=== PATIENT | male | born 1950 | race Caucasian/White ===

== ENCOUNTER → 2017-07-10 | Outpatient (CLI) | DX: R07.9 Chest pain, unspecified (principal); I45.10 Unspecified right bundle-branch block ==

== ENCOUNTER 2017-08-06 03:15 | Emergency (ER) | payer MEDICARE, OTHER ==
[2017-08-06] VITALS (7 sets, daily range): BP systolic 116–185; BP diastolic 74–103; PULSE 71–97; RESP 15–20; TEMP 97.6–97.7; O2SAT 95–98
[~2017-08-06 03:15] MED LIST: ALBU1AER INH; ALLO300 PO; BACT800T5 PO; FENO1TAB76 PO; LEVO50TA4 PO; METHO500 PO; METO50TA PO; Meclizine Hcl PO; NEXI40CA PO; OMEG1CAP53 PO; SIMV10TA PO; XANA1TAB6 PO; Z.0.WALKERFRONT; ZETI10TA5 PO
[2017-08-06] MEDS ORDERED: NEXI40CA PO (03:55)
[2017-08-06] MEDS ORDERED: XANA1TAB2 PO (03:55)
[2017-08-06] MEDS ORDERED: ALBUAER3 INH (03:55)
[2017-08-06] MEDS ORDERED: cloNIDine HCL 0.2 MG TAB PO ONE (04:15)
--- NOTE | 2017-08-06 04:21 | PD ---
HPI Chief Complaint: Psychiatric Symptoms Time Seen by Provider: 03:55 Travel History International Travel<30 days: No Contact w/Intl Traveler<30days: No Traveled to known affect area: No History of Present Illness HPI 67-year-old white male presents emergency department on a voluntary basis for psychological evaluation. The patient states that he has lost several people this past month. He states that a good friend of his just 3 days ago from cancer. He has been feeling melancholy and drinking large quantities of alcohol. Patient states that he suffers from hypertension and anxiety. He has not been taking his medication. He states that he has contemplated suicide but has no plan. No homicidal ideation. Exacerbated by recent friends passing. No alleviating factors. Patient goes on to state that he has had chronic abdominal pain for the last few months. He is been seen multiple times by his primary care doctor as well as getting a CAT scan of his abdomen. They have not determine the etiology. PFSH Past Medical History Arthritis: Yes Blood Disorders: No Bipolar Disorder: Yes Anxiety: Yes Depression: Yes Heart Rhythm Problems: No Cancer: No Cardiovascular Problems: Yes High Cholesterol: Yes Cerebrovascular Accident: Yes Diminished Hearing: Yes (BILATERAL) Endocrine: No Gastrointestinal Disorders: No GERD: Yes Gout: Yes Genitourinary: No Hypertension: Yes Immune Disorder: No Inguinal Hernia: Yes Musculoskeletal: Yes (CHRONIC BACK PAIN,PT STS HERNIATED LUMBAR DISCS) Neurologic: Yes Psychiatric: Yes Reproductive: No Respiratory: Yes Immunizations Current: No Pancreatitis: Yes Seizures: Yes (X1 DUE TO ETOH WITHDRAWAL) Thyroid Disease: Yes (HYPOTHYROID) Triglycerides - High: Yes Ulcer: Yes Tetanus Vaccination: < 5 Years PNEUMOCCOCAL Vaccine (Year): 2 Past Surgical History Abdominal Surgery: Yes (HERNIA REPAIR-RIGHT INGUINAL) Oral Surgery: Yes (ORIF JAW) Pacemaker: No Other Surgery: Yes Social History Alcohol Use: Yes (BEERS HX: ALCOHOL ABUSE ) Tobacco Use: No (QUIT LONG TIME AGO ) Substance Use: No (History of opiate abuse) Allergies-Medications (Allergen,Severity, Reaction): Uncoded Allergies: CHOLESTEROL MED (Allergy, Severe, RASH, 12/07/09) Reported Meds & Prescriptions Reported Meds & Active Scripts Active Reported Nexium (Esomeprazole DR) 40 Mg Capdr 40 Mg PO DAILY Xanax (Alprazolam) 1 Mg Tab 1 Mg PO BID Proair Hfa 8.5 GM Inh (Albuterol Sulfate) 90 Mcg/Act Aer 2 Puff INH Q4-6H PRN 108 mcg/actuation Review of Systems General / Constitutional: No: Fever Eyes: No: Visual changes HENT: No: Headaches Cardiovascular: No: Chest Pain or Discomfort Respiratory: No: Shortness of Breath Gastrointestinal: Positive: Abdominal Pain Genitourinary: No: Dysuria Musculoskeletal: Positive: Arthralgias, No: Pain Skin: No Rash Neurologic: No: Weakness Psychiatric: Positive: Depression, Suicidal Ideations, Mood Disorder, No: Anxiety, Disorder of Thought, Substance Abuse, Homicidal Ideation Endocrine: No: Polydipsia Hematologic/Lymphatic: No: Easy Bruising Physical Exam Narrative GENERAL: Well-nourished, well-developed patient. SKIN: Warm and dry. HEAD: Normocephalic and atraumatic. EYES: No scleral icterus. No injection or drainage. ENT: No nasal drainage noted. Mucous membranes pink. Airway patent. NECK: Supple, trachea midline. Moves head freely without obvious discomfort. CARDIOVASCULAR: Regular rate and rhythm without murmurs, gallops, or rubs. RESPIRATORY: Breath sounds equal bilaterally. No accessory muscle use. GASTROINTESTINAL: Abdomen soft, non-tender, nondistended. EXTREMITIES: No cyanosis or edema. BACK: Nontender without obvious deformity. No CVA tenderness. NEURO: Patient is alert and oriented. no sensorimotor deficits. Nonfocal. Normal speech. PSYCH: No delusions. No auditory or visual hallucinations. Data Data Last Documented VS Vital Signs Date Time Temp Pulse Resp B/P (MAP) Pulse Ox O2 Delivery O2 Flow Rate FiO2 08/06/17 04:34 135/78 (97) 08/06/17 03:21 97.7 71 15 98 Orders Orders Complete Blood Count With Diff (08/06/17 04:03) Comprehensive Metabolic Panel (08/06/17 04:03) Thyroid Stimulating Hormone (08/06/17 04:03) Psych Screen (08/06/17 04:03) Drug Screen, Random Urine (08/06/17 04:03) Alcohol (Ethanol) (08/06/17 04:03) Clonidine (Catapres) (08/06/17 04:15) Lipase (08/06/17 04:15) Labs Laboratory Tests Test 08/06/17 04:15 White Blood Count 8.6 TH/MM3 Red Blood Count 4.59 MIL/MM3 Hemoglobin 14.0 GM/DL Hematocrit 41.5 % Mean Corpuscular Volume 90.4 FL Mean Corpuscular Hemoglobin 30.6 PG Mean Corpuscular Hemoglobin Concent 33.9 % Red Cell Distribution Width 15.6 % Platelet Count 153 TH/MM3 Mean Platelet Volume 9.6 FL Neutrophils (%) (Auto) 50.2 % Lymphocytes (%) (Auto) 36.1 % Monocytes (%) (Auto) 9.3 % Eosinophils (%) (Auto) 3.7 % Basophils (%) (Auto) 0.7 % Neutrophils # (Auto) 4.3 TH/MM3 Lymphocytes # (Auto) 3.1 TH/MM3 Monocytes # (Auto) 0.8 TH/MM3 Eosinophils # (Auto) 0.3 TH/MM3 Basophils # (Auto) 0.1 TH/MM3 CBC Comment DIFF FINAL Differential Comment Blood Urea Nitrogen 9 MG/DL Creatinine 1.02 MG/DL Random Glucose 112 MG/DL Total Protein 7.6 GM/DL Albumin 3.8 GM/DL Calcium Level 8.7 MG/DL Alkaline Phosphatase 61 U/L Aspartate Amino Transf (AST/SGOT) 24 U/L Alanine Aminotransferase (ALT/SGPT) 30 U/L Total Bilirubin 0.6 MG/DL Sodium Level 137 MEQ/L Potassium Level 3.6 MEQ/L Chloride Level 102 MEQ/L Carbon Dioxide Level 22.8 MEQ/L Anion Gap 12 MEQ/L Estimat Glomerular Filtration Rate 73 ML/MIN Lipase 151 U/L Thyroid Stimulating Hormone 3rd Gen 0.500 uIU/ML Urine Opiates Screen NEG Urine Barbiturates Screen NEG Urine Amphetamines Screen NEG Urine Benzodiazepines Screen POS Urine Cocaine Screen NEG Urine Cannabinoids Screen NEG Ethyl Alcohol Level 130 MG/DL MDM Medical Decision Making Medical Screen Exam Complete: Yes Emergency Medical Condition: Yes Medical Record Reviewed: Yes Interpretation(s) Laboratory Tests Test 08/06/17 04:15 White Blood Count 8.6 TH/MM3 Red Blood Count 4.59 MIL/MM3 Hemoglobin 14.0 GM/DL Hematocrit 41.5 % Mean Corpuscular Volume 90.4 FL Mean Corpuscular Hemoglobin 30.6 PG Mean Corpuscular Hemoglobin Concent 33.9 % Red Cell Distribution Width 15.6 % Platelet Count 153 TH/MM3 Mean Platelet Volume 9.6 FL Neutrophils (%) (Auto) 50.2 % Lymphocytes (%) (Auto) 36.1 % Monocytes (%) (Auto) 9.3 % Eosinophils (%) (Auto) 3.7 % Basophils (%) (Auto) 0.7 % Neutrophils # (Auto) 4.3 TH/MM3 Lymphocytes # (Auto) 3.1 TH/MM3 Monocytes # (Auto) 0.8 TH/MM3 Eosinophils # (Auto) 0.3 TH/MM3 Basophils # (Auto) 0.1 TH/MM3 CBC Comment DIFF FINAL Differential Comment Blood Urea Nitrogen 9 MG/DL Creatinine 1.02 MG/DL Random Glucose 112 MG/DL Total Protein 7.6 GM/DL Albumin 3.8 GM/DL Calcium Level 8.7 MG/DL Alkaline Phosphatase 61 U/L Aspartate Amino Transf (AST/SGOT) 24 U/L Alanine Aminotransferase (ALT/SGPT) 30 U/L Total Bilirubin 0.6 MG/DL Sodium Level 137 MEQ/L Potassium Level 3.6 MEQ/L Chloride Level 102 MEQ/L Carbon Dioxide Level 22.8 MEQ/L Anion Gap 12 MEQ/L Estimat Glomerular Filtration Rate 73 ML/MIN Lipase 151 U/L Thyroid Stimulating Hormone 3rd Gen 0.500 uIU/ML Urine Opiates Screen NEG Urine Barbiturates Screen NEG Urine Amphetamines Screen NEG Urine Benzodiazepines Screen POS Urine Cocaine Screen NEG Urine Cannabinoids Screen NEG Ethyl Alcohol Level 130 MG/DL Differential Diagnosis MDM: High Differential diagnoses: Schizophrenia, schizoaffective disorder, bipolar, anxiety, depression, adjustment reaction, mood disorder NOS, ODD, depressive disorder NOS, psychosis NOS, substance induced mood disorder, infection, electrolyte abnormality, malingering. Narrative Course Mental health screening discussed with the patient. Psychiatric screen ordered. The patient has been medically cleared. Patient was given clonidine 0.2 mg p.o. for blood pressure. This is medical clearance for psychiatric admission Diagnosis Primary Impression: Medical clearance for psychiatric admission Condition: Stable Shaun Davies Aug 06, 2017 04:21
[2017-08-06 04:41] LABS: AUTOMATED NEUTROPHIL # 4.3 TH/MM3 (1.8-7.7); BASOPHIL # 0.1 TH/MM3 (0-0.2); BASOPHIL % 0.7 % (0.0-2.0); EOSINOPHIL # 0.3 TH/MM3 (0-0.4); EOSINOPHIL % 3.7 % (0.0-4.0); HEMATOCRIT 41.5 % (39.0-51.0); LYMPH % 36.1 % (9.0-44.0); LYMPHOCYTE # 3.1 TH/MM3 (1.0-4.8); MEAN CELL VOLUME 90.4 FL (80.0-100.0); MEAN CORPUSCULAR HEMOGLOBIN 30.6 PG (27.0-34.0); MEAN CORPUSCULAR HGB CONC 33.9 % (32.0-36.0); MEAN PLATELET VOLUME 9.6 FL (7.0-11.0); MONO % 9.3 % (0.0-8.0); MONOCYTE # 0.8 TH/MM3 (0-0.9); NEUT % 50.2 % (16.0-70.0); PLATELET COUNT 153 TH/MM3 (150-450); RED BLOOD COUNT 4.59 MIL/MM3 (4.50-5.90); RED CELL DISTRIBUTION WIDTH 15.6 % (11.6-17.2); WHITE BLOOD COUNT 8.6 TH/MM3 (4.0-11.0)
[2017-08-06 05:06] LABS: ALBUMIN 3.8 GM/DL (3.4-5.0); ALT (GPT) 30 U/L (12-78); AST (GOT) 24 U/L (15-37); BICARBONATE 22.8 MEQ/L (21.0-32.0); BLOOD UREA NITROGEN 9 MG/DL (7-18); CALCIUM 8.7 MG/DL (8.5-10.1); CHLORIDE 102 MEQ/L (98-107); CREATININE 1.02 MG/DL (0.60-1.30); GLOMERULAR FILTRATION RATE 73 ML/MIN (>89); GLUCOSE,RANDOM 112 MG/DL (74-106); SODIUM (NA) 137 MEQ/L (136-145)
[2017-08-06 05:16] LABS: ALKALINE PHOSPHATASE 61 U/L (45-117); TOTAL BILIRUBIN ADULT 0.6 MG/DL (0.2-1.0); TOTAL PROTEIN 7.6 GM/DL (6.4-8.2)
--- NOTE | 2017-08-06 15:39 | EKG ---
Date Performed: 08/06/2017 Time Performed: 12:11:29 PTAGE: 67 years EKG: Sinus rhythm RIGHT BUNDLE BRANCH BLOCK LEFT ANTERIOR FASCICULAR BLOCK ABNORMAL ECG NO PREVIOUS TRACING DOCTOR: Josue Concepcion Interpretating Date/Time 08/06/2017 15:37:21
[2017-08-06] MEDS ORDERED: LORazepam 1 MG TAB PO ONE (21:00)
[2017-08-07 02:00] VITALS: BP 156/90; PULSE 77; RESP 18; O2SAT 99
[2017-08-07 06:29] VITALS: BP 163/83; PULSE 57; RESP 18; O2SAT 99
--- NOTE | 2017-08-07 08:03 | PD ---
Physical Exam Date Seen by Provider: Aug 07, 2017 Time Seen by Provider: 08:01 Narrative For full history and physical examination please see previous notes. Data Data Last Documented VS Vital Signs Date Time Temp Pulse Resp B/P (MAP) Pulse Ox O2 Delivery O2 Flow Rate FiO2 08/07/17 06:29 57 18 163/83 (109) 99 Room Air 08/06/17 18:08 97.6 Orders Orders Complete Blood Count With Diff (08/06/17 04:03) Comprehensive Metabolic Panel (08/06/17 04:03) Thyroid Stimulating Hormone (08/06/17 04:03) Psych Screen (08/06/17 04:03) Drug Screen, Random Urine (08/06/17 04:03) Alcohol (Ethanol) (08/06/17 04:03) Clonidine (Catapres) (08/06/17 04:15) Lipase (08/06/17 04:15) Diet Regular Basic (08/06/17 Breakfast) Diet Regular Basic (08/06/17 Lunch) Electrocardiogram (08/06/17 12:11) Diet Regular Basic (08/06/17 Dinner) Lorazepam (Ativan) (08/06/17 21:00) Diet Regular Basic (08/07/17 Breakfast) Ed Discharge Order (08/07/17 08:00) Labs Laboratory Tests Test 08/06/17 04:15 White Blood Count 8.6 TH/MM3 Red Blood Count 4.59 MIL/MM3 Hemoglobin 14.0 GM/DL Hematocrit 41.5 % Mean Corpuscular Volume 90.4 FL Mean Corpuscular Hemoglobin 30.6 PG Mean Corpuscular Hemoglobin Concent 33.9 % Red Cell Distribution Width 15.6 % Platelet Count 153 TH/MM3 Mean Platelet Volume 9.6 FL Neutrophils (%) (Auto) 50.2 % Lymphocytes (%) (Auto) 36.1 % Monocytes (%) (Auto) 9.3 % Eosinophils (%) (Auto) 3.7 % Basophils (%) (Auto) 0.7 % Neutrophils # (Auto) 4.3 TH/MM3 Lymphocytes # (Auto) 3.1 TH/MM3 Monocytes # (Auto) 0.8 TH/MM3 Eosinophils # (Auto) 0.3 TH/MM3 Basophils # (Auto) 0.1 TH/MM3 CBC Comment DIFF FINAL Differential Comment Blood Urea Nitrogen 9 MG/DL Creatinine 1.02 MG/DL Random Glucose 112 MG/DL Total Protein 7.6 GM/DL Albumin 3.8 GM/DL Calcium Level 8.7 MG/DL Alkaline Phosphatase 61 U/L Aspartate Amino Transf (AST/SGOT) 24 U/L Alanine Aminotransferase (ALT/SGPT) 30 U/L Total Bilirubin 0.6 MG/DL Sodium Level 137 MEQ/L Potassium Level 3.6 MEQ/L Chloride Level 102 MEQ/L Carbon Dioxide Level 22.8 MEQ/L Anion Gap 12 MEQ/L Estimat Glomerular Filtration Rate 73 ML/MIN Lipase 151 U/L Thyroid Stimulating Hormone 3rd Gen 0.500 uIU/ML Urine Opiates Screen NEG Urine Barbiturates Screen NEG Urine Amphetamines Screen NEG Urine Benzodiazepines Screen POS Urine Cocaine Screen NEG Urine Cannabinoids Screen NEG Ethyl Alcohol Level 130 MG/DL MDM Medical Record Reviewed: Yes Supervised Visit with ANSON: No Narrative Course For full H&P please see previous notes. Patient was seen and evaluated, medically cleared. Patient was then seen and evaluated by psychiatry. Patient was diagnosed with alcohol induced mood disorder. Patient will be discharged home, he should follow-up with Nicanor Means. Diagnosis Primary Impression: Alcohol-induced mood disorder Referrals: Primary Care Physician [facility] day Patient Instructions: Abuse of Alcohol (ED), Alcohol Dependence (ED), Alcohol Intoxication (ED), General Instructions Additional Instruction: Avoid excessive intake of alcohol or avoid alcohol altogether Follow-up with Nicanor Means Follow-up with your primary doctor Return to emergency department for any new or worsening symptoms Med/Other Pt SpecificInfo: No Change to Meds Disposition: 01 DISCHARGE HOME Condition: Stable Ena Moncada Aug 07, 2017 08:03
--- NOTE | 2017-08-07 16:37 | PD.PSY.CON ---
Provisional Diagnosis Admission Date [place] I. Alcohol induced mood disorder, alcohol use disorder, malingering [place] II. Antisocial personality disorder [place] III. No significant medical history History of Present Illness Service Psychiatry Consult Requested By ER Reason for Consult Psychiatric evaluate Primary Care Physician Angelita Smith MD HPI The patient was seen this morning at 8:30 AM The patient is 67-year-old man, domiciled with a roommate in [place], employed, single, with psychiatric history of alcohol use disorder, alcohol induced mood disorder, no previous psychiatric hospitalizations, no previous suicidal attempts, no significant medical history, who presents emergency department on a voluntary basis for psychological evaluation. The patient states that he has lost several people this past month. He states that a good friend of his just 3 days ago from cancer. He has been feeling melancholy and drinking large quantities of alcohol. Patient states that he suffers from hypertension and anxiety. He has not been taking his medication. He states that he has contemplated suicide but has no plan. No homicidal ideation. Exacerbated by recent friends passing. No alleviating factors. Patient goes on to state that he has had chronic abdominal pain for the last few months. He is been seen multiple times by his primary care doctor as well as getting a CAT scan of his abdomen. They have not determine the etiology. However, today on psychiatric evaluation the main focus of the interview is lower back pain and abdominal pain. The patient states that yesterday he was feeling sad because he was remembering his friend "and I was drinking alcohol". Today the patient denies symptoms of depression, denies anxiety, denies april and psychosis, he denies suicidal and homicidal ideation, denies visual and auditory hallucinations. Review of Systems Constitutional: DENIES: Diaphoretic episodes, Fatigue, Fever, Weight gain, Weight loss, Chills, Dizziness, Change in appetite, Night Sweats Endocrine: DENIES: Heat/cold intolerance, Polydipsia, Polyuria, Polyphagia Eyes: DENIES: Blurred vision, Diplopia, Eye inflammation, Eye pain, Vision loss , Photosensitivity, Double Vision Ears, nose, mouth, throat: DENIES: Tinnitus, Hearing loss, Vertigo, Nasal discharge, Oral lesions, Throat pain, Hoarseness, Ear Pain, Running Nose, Epistaxis, Sinus Pain, Toothache, Odynophagia Respiratory: DENIES: Apneas, Cough, Snoring, Wheezing, Hemoptysis, Sputum production, Shortness of breath Cardiovascular: DENIES: Chest pain, Palpitations, Syncope, Dyspnea on Exertion , PND, Lower Extremity Edema, Orthopnea, Claudication Gastrointestinal: DENIES: Abdominal pain, Black stools, Bloody stools, Constipation, Diarrhea, Nausea, Vomiting, Difficulty Swallowing, Anorexia Genitourinary: DENIES: Sexual dysfunction, Urinary frequency, Urinary incontinence, Urgency, Hematuria, Dysuria, Nocturia, Penile Discharge, Testicular Pain, Testicular Swelling Musculoskeletal: DENIES: Joint pain, Muscle aches, Stiffness, Joint Swelling, Back pain, Neck pain Integumentary: DENIES: Abnormal pigmentation, Nail changes, Pruritus, Rash Hematologic/lymphatic: DENIES: Bruising, Lymphadenopathy Immunologic/allergic: DENIES: Eczema, Urticaria Neurologic: DENIES: Abnormal gait, Headache, Localized weakness, Paresthesias, Seizures, Speech Problems, Tremor, Poor Balance Psychiatric: DENIES: Anxiety, Confusion, Mood changes, Depression, Hallucinations, Agitation, Suicidal Ideation, Homicidal Ideation, Delusions Past Family Social History Uncoded Allergies: CHOLESTEROL MED (Allergy, Severe, RASH, 12/07/09) Reported Medications Esomeprazole DR (Nexium) 40 Mg Capdr, 40 MG PO DAILY, CAP 0 Refills 08/06/17 Alprazolam (Xanax) 1 Mg Tab, 1 MG PO BID, TAB 0 Refills 08/06/17 Albuterol 8.5 GM Inh (Proair Hfa 8.5 GM Inh) 90 Mcg/Act Aer, 2 PUFF INH Q4-6H Y for SHORTNESS OF BREATH, #1 INHALER 0 Refills 108 mcg/actuation 08/06/17 Family Psych History No family psychiatric history Social History Patient was born and raised in [place], he lives with a roommate in [place], unemployed, single Physical Exam Vital Signs Vital Signs Date Time Temp Pulse Resp B/P (MAP) Pulse Ox O2 Delivery O2 Flow Rate FiO2 08/07/17 08:01 08/07/17 06:29 57 18 99 Room Air 08/06/17 18:08 97.6 Mental Status Examination Appearance: Appropriate Consciousness: Alert Orientation: x4 Motor Activity: Normal gait Speech: Unremarkable Language: Adequate Fund of Knowledge: Adequate Attention and Concentration: Adequate Memory: Unremarkable Mood: Appropriate Affect: Appropriate Thought Process & Associations: Intact Thought Content: Appropriate Hallucination Type: None Delusion Type: None Suicidal Ideation: No Suicidal Plan: No Suicidal Intention: No Homicidal Ideation: No Homicidal Plan: No Homicidal Intention: No Insight: Adequate Judgment: Adequate Assessment & Plan Problem List: (1) Alcohol abuse with alcohol-induced mood disorder ICD Codes: F10.14 - Alcohol abuse with alcohol-induced mood disorder Assessment & Plan: Today on psychiatric evaluation the patient denies depressive symptoms, denies anxiety, denies april and psychosis. He denies suicidal and homicidal ideation, he denies visual and auditory hallucinations. His main focus during the interview is back pain and abdominal pain, requesting narcotics. He has mild bilateral hand tremors which could be secondary to alcohol withdrawal. Will order Ativan 2 mg p.o. now. No psychiatric admission is indicated at this moment. She will be provided with a referral to [facility] for detox. Assessment & Plan Estimated LOS: Gregg Camara MD Aug 07, 2017 16:37
== END 2017-08-07 08:13 | disposition home or self-care (01) ==
LOC: NEPD 03:15 → NEPJ 08-07 08:13
DX: F10.14 Alcohol abuse with alcohol-induced mood disorder (principal); R25.1 Tremor, unspecified; M54.5 Low back pain; R10.9 Unspecified abdominal pain; Y90.6 Blood alcohol level of 120-199 mg/100 ml; I10 Essential (primary) hypertension; E78.2 Mixed hyperlipidemia; E03.9 Hypothyroidism, unspecified; M19.90 Unspecified osteoarthritis, unspecified site; M10.9 Gout, unspecified; K21.9 Gastro-esophageal reflux disease without esophagitis; F31.9 Bipolar disorder, unspecified; F41.9 Anxiety disorder, unspecified; Z86.73 Personal history of transient ischemic attack (TIA), and cerebral infarction without residual deficits; Z88.8 Allergy status to other drugs, medicaments and biological substances; Z79.899 Other long term (current) drug therapy
CPT/HCPCS: 80053; 80307; 83690; 84443; 85025; 93005; 99284